=== PATIENT | male | born 1990 | race Caucasian/White ===

== ENCOUNTER 2017-07-20 18:51 | Emergency (ER) | payer SELFPAY ==
[~2017-07-20] VITALS: Ht 172.7 cm; Wt 72.6 kg
[2017-07-20 19:01] VITALS: Ht 172.7 cm; Wt 72.6 kg
[2017-07-20 20:20] LABS: BASOPHIL % 0.4 % (0-2); PLATELET COUNT 291 x10^3mcL (130-400); RED CELL DISTRIBUTION WIDTH 12.9 % (11.5-14.5)
[2017-07-20 20:39] LABS: CARBON DIOXIDE 28.8 mmol/L (21-32); CHLORIDE SERUM 103 mmol/L (98-107); CREATININE SERUM 0.9 mg/dL (0.7-1.3); GFR1 > 60 mL/min; GLUCOSE SERUM 88 mg/dL (74-106); POTASSIUM SERUM 3.8 mmol/L (3.5-5.1); SODIUM SERUM 138 mmol/L (136-145)
[2017-07-20 20:43] LABS: ALKALINE PHOSPHATASE 57 U/L (46-116); ALT/SGPT 20 U/L (16-63); AST/SGOT 18 U/L (15-37); BILIRUBIN TOTAL 0.43 mg/dL (0.20-1.00)
[2017-07-20 20:44] LABS: CHOLESTEROL 109 mg/dL (<200)
[2017-07-20 20:44] LABS: AMPHETAMINE QUAL UR POSITIVE (NEG <=1000)
[2017-07-21 07:03] VITALS: BP 123/79
== END 2017-07-21 07:03 | disposition other institution (70) ==
LOC: ED 18:51
PROVIDERS: Specialist
DX: F15.20 Other stimulant dependence, uncomplicated (principal); F12.10 Cannabis abuse, uncomplicated
CPT/HCPCS: 36415; 36600; 83880; G0480; J2310; Q0092

== ENCOUNTER 2017-07-20 18:51 | Emergency (ER) | payer OTHER | END 2017-07-20 19:51 | disposition other institution (70) | LOC: ED 18:51 | DX: Z02.89 Encounter for other administrative examinations (principal) ==